=== PATIENT | female | born 1985 | race Caucasian/White ===

== ENCOUNTER → 2020-05-23 | Outpatient (CLI) | payer BC ==
--- NOTE | 2020-05-23 08:03 | CT ---
EXAMINATION TYPE: CT brain wo con DATE OF EXAM: 05/23/2020 COMPARISON: None INDICATION: Blunt head trauma DLP: 1005 mGycm, Automated exposure control for dose reduction was used. CONTRAST: None CT of the brain is performed utilizing 3 mm thick sections through the posterior fossa and 3 mm thick sections through the remaining calvarium. Study is performed within 24 hours of arrival to the [facility]. No abnormal hyperdensity is present to suggest an acute intracranial hemorrhage. No mass lesion is evident. No acute infarcts are evident. Ventricles and sulci are appropriate for the patient age. Paranasal sinuses and mastoid air cells within the [id number] are clear. IMPRESSIONS: 1. Normal CT Brain
== END | disposition home or self-care (01) ==
LOC: RADCTMAIN 07:22
PROVIDERS: ATTEND Family Medicine
DX: S09.90XA Unspecified injury of head, initial encounter (principal)
CPT/HCPCS: 70450

== ENCOUNTER → 2022-05-28 | Outpatient (CLI) | payer OTHER ==
--- NOTE | 2022-05-28 15:35 | US ---
EXAMINATION TYPE: US pelvis complete transvag DATE OF EXAM: 05/28/2022 COMPARISON: NONE CLINICAL INDICATION: Female, 36 years old with history of D28.2 POLYCYSTIC OVARIAN SYNDROME; Pt state s diagnosed with PCOS 15 years ago, states recent irregular menses TECHNIQUE: Transvaginal (TV) and Transabdominal (TA) . Transabdominal sonographic images of the pel vis were acquired. Transvaginal sonographic images were medically necessary to better assess the fol lowing anatomy: TV ordered by physician Date of LMP: 3 weeks ago EXAM MEASUREMENTS: Uterus: 8.9 x 3.9 x 4.6 cm Endometrial Stripe: 1.5 cm Right Ovary: 2.6 x 1.9 x 2.7 cm Left Ovary: 3.0 x 2.0 x 3.1 cm 1. Uterus: Retroverted wnl 2. Endometrium: Thickened 3. Right Ovary: Multiple follicles, simple cyst = 1.4 x 1.1 x 1.4 cm 4. Left Ovary: Multiple small follicles 5. Bilateral Adnexa: wnl 6. Posterior cul-de-sac: wnl Urinary bladder is sonolucent. Posterior wall is normal. IMPRESSION: 1. Thickened endometrium. 2. Right ovarian cyst
== END | disposition home or self-care (01) ==
LOC: RADUSWWP 14:51
PROVIDERS: ATTEND Family Medicine
DX: E28.2 Polycystic ovarian syndrome (principal); R93.89 Abnormal findings on diagnostic imaging of other specified body structures
CPT/HCPCS: 76830; 76856

== ENCOUNTER → 2022-07-23 | Outpatient (CLI) | payer OTHER ==
[2022-07-23 16:23] LABS: T4, Free (Free Thyroxine) 1.36 ng/dL (0.80-1.80)
== END | disposition home or self-care (01) ==
LOC: LABWHC1 08:58
PROVIDERS: ATTEND Obstetrics & Gynecology
DX: E28.2 Polycystic ovarian syndrome (principal); R53.83 Other fatigue; R87.1 Abnormal level of hormones in specimens from female genital organs
CPT/HCPCS: 36415; 84439; 84443; 84481; 86376

== ENCOUNTER → 2022-08-20 | Outpatient (CLI) | payer OTHER | END | disposition home or self-care (01) | LOC: LABWHC1 08:05 | PROVIDERS: ATTEND Obstetrics & Gynecology | DX: E28.2 Polycystic ovarian syndrome (principal); E34.9 Endocrine disorder, unspecified; R53.83 Other fatigue | CPT/HCPCS: 36415; 82306; 82607; 82947; 83036; 83525 ==

== ENCOUNTER → 2023-11-12 | Outpatient (CLI) | payer OTHER ==
[2023-11-12 12:40] LABS: Basophils # (A) 0.04 X 10*3/uL (0.00-0.10); Basophils % (A) 0.8 %; Eosinophils # (A) 0.06 X 10*3/uL (0.04-0.35); Eosinophils % (A) 1.2 %; Lymphocytes % (A) 33.1 %; MCHC 31.6 g/dL (32.0-37.0); MCV 88.8 FL (80.0-97.0); Mean Platelet Volume 10.6 FL (9.5-12.2); Monocytes # (A) 0.35 X 10*3/uL (0.20-1.00); Monocytes % (A) 6.8 %; NRBC Per 100 WBC 0 X 10*3/uL (0.00-0.01); Neutrophils # (A) 2.97 X 10*3/uL (1.80-7.70); Neutrophils % (A) 57.9 %; Platelet Count 222 X 10*3/uL (140-440); RBC 4.28 X 10*6/uL (4.10-5.20); RDW 13.8 % (11.5-14.5); WBC 5.13 X 10*3/uL (4.50-10.00)
[2023-11-12 13:49] LABS: % Iron Saturation 7.69 (12.00-45.00); Ferritin 19.3 ng/mL (10.0-291.0); Iron 29 UG/DL (50-170); Total Iron Binding Capacity 377 UG/DL (228-460)
[2023-11-12 14:15] LABS: Estradiol <20.0 pg/mL
[2023-11-12 14:39] LABS: Follicle Stimulating Hormone 6.5 mIU/mL
== END | disposition home or self-care (01) ==
LOC: LABWHC1 08:26
PROVIDERS: ATTEND Obstetrics & Gynecology
DX: Z31.41 Encounter for fertility testing (principal); Z31.69 Encounter for other general counseling and advice on procreation
CPT/HCPCS: 36415; 82397; 82670; 82728; 83001; 83036; 83540; 83550; 85025